=== PATIENT | female | born 1940 | race Caucasian/White ===

== ENCOUNTER → 2021-09-12 | Outpatient (CLI) | payer MEDICARE, BC ==
--- NOTE | 2021-09-12 12:20 | RAD ---
Ultrasound evaluation of the bladder 09/12/2021 INDICATION: Increased urinary frequency. Recent UTI. COMPARISON STUDY: Limited ultrasound evaluation of bladder was performed. Static images are submitted to PACS. Prevoid bladder volume is estimated 139 cc. Post void bladder volume is 62 cc. Bilateral ur eteral jets are visualized. Bladder wall appears minimally thickened. No other focal sonographic abno rmality is seen. IMPRESSION: 1. Prevoid bladder volume 1 39 cc. Post void bladder volume 62 cc 2. Probable mild bladder wall thickening Electronically signed by: Juan R Wu MD (09/12/2021 12:18 PM) [id number]
== END ==
LOC: US 10:57
PROVIDERS: ATTEND Family Medicine
DX: R35.0 Frequency of micturition (principal)
CPT/HCPCS: 76857

== ENCOUNTER 2021-11-26 00:22 | Inpatient (IN) | payer MEDICARE ==
[~2021-11-26] VITALS: Ht 167.6 cm; Wt 57.0 kg
[2021-11-26 00:58] LABS: CALCIUM 8.6 mg/dL (8.5-10.1); CREATININE 1.6 mg/dL (0.6-1.0); GFR 31.1; POTASSIUM 3.7 mmol/L (3.5-5.1)
[2021-11-26 01:04] LABS: ALBUMIN 3.7 g/dL (3.4-5.0); TOTAL BILIRUBIN 0.5 mg/dL (0.2-1.0); TOTAL PROTEIN 7.5 g/dL (6.4-8.2)
--- NOTE | 2021-11-26 01:04 | RAD ---
EXAM: AP View of the chest DATE: 11/26/2021 12:36 AM INDICATION: Shortness of breath COMPARISON: No Prior FINDINGS/ IMPRESSION: The heart is not enlarged. Bilateral perihilar and lung base airspace opacities likely consolidative process such as pneumonia. Small pleural effusions. No pneumothorax. Electronically signed by: Oj Del Valle MD (11/26/2021 1:02 AM) [facility]
--- NOTE | 2021-11-26 01:09 | PHYS DOC ---
Past History Past Surgical History: Other Alcohol Use: None General Adult EDM: Chief Complaint: SHORTNESS OF BREATH HPI: HPI: 81-year-old female presents via EMS with shortness of breath. Patient took metoprolol around 630. Around 7:30 PM she started to feel short of breath. She was not doing anything in particular when it started. It got worse through the evening, so she called EMS. When EMS arrived her oxygen saturations were in the 70s. The patient is not on oxygen at home. She has no official history of COPD but when she was a smoker for decades. She quit a few years ago. Patient states she was feeling fine prior to this episode. She had no complaints. Denies fever or chills. Review of Systems: Review of Systems: Constitutional: Denies fever or chills Eyes: Denies change in visual acuity HENT: Denies nasal congestion or sore throat Respiratory: Denies cough or shortness of breath Cardiovascular: Denies chest pain or edema GI: Denies abdominal pain, nausea, vomiting, bloody stools or diarrhea : Denies dysuria Musculoskeletal: Denies back pain or joint pain Integument: Denies rash Neurologic: Denies headache, focal weakness or sensory changes Endocrine: Denies polyuria or polydipsia Lymphatic: Denies swollen glands Psychiatric: Denies depression or anxiety Allergies: Allergies: Allergies Coded Allergies Type Severity Reaction Last Updated Verified No Known Drug Allergies 11/26/21 No Physical Exam: PE: Constitutional: Well developed, well nourished, no acute distress, non-toxic appearance. [] HENT: Normocephalic, atraumatic, bilateral external ears normal, oropharynx moist, no oral exudates, nose normal. [] Eyes: PERRLA, EOMI, conjunctiva normal, no discharge. [] Neck: Normal range of motion, no tenderness, supple, no stridor. [] Cardiovascular:Heart rate regular rhythm, no murmur [] Lungs & Thorax: Bilateral breath sounds clear to auscultation [] Abdomen: Bowel sounds normal, soft, no tenderness, no masses, no pulsatile masses. [] Skin: Warm, dry, no erythema, no rash. [] Back: No tenderness, no CVA tenderness. [] Extremities: No tenderness, no cyanosis, no clubbing, ROM intact, no edema. [] Neurologic: Alert and oriented X 3, normal motor function, normal sensory function, no focal deficits noted. [] Psychologic: Affect normal, judgement normal, mood normal. [] Current Patient Data: Labs: Laboratory Tests Test 11/26/21 00:25 Sodium Level 138 mmol/L (136-145) Potassium Level 3.7 mmol/L (3.5-5.1) Chloride Level 101 mmol/L (98-107) Carbon Dioxide Level 23 mmol/L (21-32) Anion Gap 14 (6-14) Blood Urea Nitrogen 25 mg/dL (7-20) H Creatinine 1.6 mg/dL (0.6-1.0) H Estimated GFR (Cockcroft-Gault) 31.1 BUN/Creatinine Ratio 16 (6-20) Glucose Level 396 mg/dL (70-99) H Calcium Level 8.6 mg/dL (8.5-10.1) Total Bilirubin 0.5 mg/dL (0.2-1.0) Aspartate Amino Transferase (AST) 44 U/L (15-37) H Alanine Aminotransferase (ALT) 24 U/L (14-59) Alkaline Phosphatase 182 U/L (46-116) H Troponin I High Sensitivity 27 ng/L (4-50) Total Protein 7.5 g/dL (6.4-8.2) Albumin 3.7 g/dL (3.4-5.0) Albumin/Globulin Ratio 1.0 (1.0-1.7) Vital Signs: Vital Signs Date Time Temp Pulse Resp B/P (MAP) Pulse Ox O2 Delivery O2 Flow Rate FiO2 11/26/21 00:38 100 24 126/76 (93) 98 BiPAP/CPAP EKG: EKG: [] Radiology/Procedures: Radiology/Procedures: [] Impressions: EXAM: CT chest with contrast - pulmonary embolus protocol CLINICAL HISTORY: Shortness of breath COMPARISON: None. TECHNIQUE: CT of the chest following the administration of intravenous contrast during the pulmonary arterial phase. Axial, coronal and sagittal reformatted images were generated including MIP images. ---PQRS compliance statement - One or more of the following individualized dose reduction techniques were utilized for this study: 1. Automated exposure control 2. Adjustment of the mA and/or kV according to patient size 3. Use of iterative reconstruction technique--- FINDINGS: CHEST: Diagnostic quality: Adequate. Pulmonary emboli: None seen Right heart strain: None Pulmonary arteries: Normal in caliber. Heart is mildly enlarged. No pericardial effusion. Small pleural effusions. No pneumothorax. Diffuse emphysematous changes are seen bilaterally. Bilateral solid and groundglass airspace opacities. Enlarged right hilar lymphadenopathy, rental representative lymph node measures 2.4 x 2 cm. Mediastinal lymphadenopathy. No axillary lymphadenopathy. Visualized Upper abdomen: High density material dependently within the gallbladder likely sludge. Bones: Multifocal degenerative changes of the spine greatest at T8-9 with severe disc height loss and endplate sclerosis. IMPRESSION: 1. No evidence for acute pulmonary embolus. 2. Bilateral solid and groundglass airspace opacities. Findings may represent COVID-19 pneumonia. Imaging follow-up to resolution is recommended as underlying mass may be excluded. 3. Mediastinal and right hilar lymphadenopathy, possibly reactive 4. Small pleural effusions. 5. Additionally the bilateral parenchymal airspace opacities and pleural effusions may be seen with pulmonary edema. Electronically signed by: Oj Jiménez MD (11/26/2021 2:23 AM) [facility] DICTATED AND SIGNED BY: OJ JIMÉNEZ MD DATE: 11/26/21218 CC: RHIANNON HALL DO; GUANAKITO LEGGETT ~MTH0 0 Heart Score: C/O Chest Pain: No Risk Factors: Risk Factors: DM, Current or recent (<one month) smoker, HTN, HLP, family history of CAD, obesity. Risk Scores: Score 0 - 3: 2.5% MACE over next 6 weeks - Discharge Home Score 4 - 6: 20.3% MACE over next 6 weeks - Admit for Clinical Observation Score 7 - 10: 72.7% MACE over next 6 weeks - Early Invasive Strategies Course & Med Decision Making: Course & Med Decision Making Pertinent Labs and Imaging studies reviewed. (See chart for details) When the patient arrived, she was placed on BiPAP. The patient's oxygen improved to 95% and she became much more alert and aware. Her initial venous blood gas pH was 7.066. See labs for more details. The patient's chest x-ray is significant for bilateral infiltrates. I will treat her for pneumonia and also order a CT angiogram of the chest. The patient has a lactic acid of 5.8 I have ordered 30 mL/kg of actual weight fluids. Her creatinine is 1.6. White count 14.4. Influenza and rapid Covid are negative. Repeat lactic acid 1.6. Patient's CTA was negative for pulmonary embolus but showed groundglass opacities as well as possible edema. I have given the patient 40 mg of Lasix IV. I spoke with the hospitalist, Dr. Cardoso and he has accepted the patient for admission. [] Dragon Disclaimer: Dragon Disclaimer: This electronic medical record was generated, in whole or in part, using a voice recognition dictation system. Departure Departure: Impression: Primary Impression: Bilateral pneumonia Additional Impressions: Pulmonary edema Respiratory failure Disposition: ADMITTED INPATIENT Admitting Physician: Low Cardoso Condition: STABLE Referrals: GUANAKITO LEGGETT (PCP) RHIANNON HALL DO Nov 26, 2021 01:09
[2021-11-26 01:13] LABS: BASO # 0.2 x10^3/uL (0.0-0.2); BASO % 1 % (0-3); EOS # 0.5 x10^3/uL (0.0-0.7); EOS % 3 % (0-3); HEMATOCRIT 43.8 % (36.0-47.0); HEMOGLOBIN 14.1 g/dL (12.0-15.5); LYMPH # 5.3 x10^3/uL (1.0-4.8); LYMPH % 36 % (24-48); MEAN CORPUSCULAR HEMOGLOBIN 32 pg (25-35); MEAN CORPUSCULAR HGB CONC 32 g/dL (31-37); MEAN CORPUSCULAR VOLUME 99 fL (79-100); MONO # 0.5 x10^3/uL (0.0-1.1); MONO % 4 % (0-9); NEUT % 56 % (31-73); PLATELET COUNT 325 x10^3/uL (140-400); RED BLOOD COUNT 4.44 x10^6/uL (3.50-5.40); RED CELL DISTRIBUTION WIDTH 13.3 % (11.5-14.5); WHITE BLOOD COUNT 14.4 x10^3/uL (4.0-11.0)
[2021-11-26 01:16] LABS: INFLUENZA A PATIENT NEGATIVE (NEGATIVE); INFLUENZA B PATIENT NEGATIVE (NEGATIVE)
[2021-11-26] MEDS ORDERED: IV NORMAL SALINE 50ML 50 ML ONE (01:24)
[2021-11-26] MEDS ORDERED: IV NORMAL SALINE 250ML 250 ML ONE (01:24)
[2021-11-26] MEDS ORDERED: cefTRIAXone SODIUM 1 GM VIAL ONE (01:24)
[2021-11-26] MEDS ORDERED: AZITHROMYCIN 500 MG VIAL. IV ONE (01:24)
[2021-11-26] MEDS ORDERED: AZITHROMYCIN 500 MG in IV NORMAL SALINE 250ML 250 ML IV ONE (01:30)
[2021-11-26] MEDS ORDERED: CONTRAST GIVEN. MC PRN (01:30)
[2021-11-26] MEDS ORDERED: IOHEXOL 350 MG/ML 100 ML VIAL. IV ONE (02:00)
[2021-11-26] MEDS ORDERED: FUROSEMIDE 40 MG/4 ML VIAL IVP ONE ×2 (02:15→03:00)
--- NOTE | 2021-11-26 02:26 | RAD ---
EXAM: CT chest with contrast - pulmonary embolus protocol CLINICAL HISTORY: Shortness of breath COMPARISON: None. TECHNIQUE: CT of the chest following the administration of intravenous contrast during the pulmonary arterial phase. Axial, coronal and sagittal reformatted images were generated including MIP images. ---PQRS compliance statement - One or more of the following individualized dose reduction techniques were utilized for this study: 1. Automated exposure control 2. Adjustment of the mA and/or kV according to patient size 3. Use of iterative reconstruction technique--- FINDINGS: CHEST: Diagnostic quality: Adequate. Pulmonary emboli: None seen Right heart strain: None Pulmonary arteries: Normal in caliber. Heart is mildly enlarged. No pericardial effusion. Small pleural effusions. No pneumothorax. Diffuse emphysematous changes are seen bilaterally. Bilateral solid and groundglass airspace opacitie s. Enlarged right hilar lymphadenopathy, kiosk sales representative lymph node measures 2.4 x 2 cm. Mediastinal lymp hadenopathy. No axillary lymphadenopathy. Visualized Upper abdomen: High density material dependently within the gallbladder likely sludge. Bones: Multifocal degenerative changes of the spine greatest at T8-9 with severe disc height loss and endplate sclerosis. IMPRESSION: 1. No evidence for acute pulmonary embolus. 2. Bilateral solid and groundglass airspace opacities. Findings may represent COVID-19 pneumonia. Im aging follow-up to resolution is recommended as underlying mass may be excluded. 3. Mediastinal and right hilar lymphadenopathy, possibly reactive 4. Small pleural effusions. 5. Additionally the bilateral parenchymal airspace opacities and pleural effusions may be seen with pulmonary edema. Electronically signed by: Oj Del Valle MD (11/26/2021 2:23 AM) [facility]BY
[2021-11-26] MEDS: IV NORMAL SALINE 1,000ML 1,000 ML IV SCH ×2 (02:27→03:00)
[2021-11-26 02:47] LABS: BILIRUBIN,URINE NEG (NEG); CLARITY,URINE HAZY; COLOR,URINE YELLOW; GLUCOSE,URINE 500 mg/dL (NEG); NITRITE,URINE NEG (NEG); UROBILINOGEN,URINE 0.2 mg/dL (0.2 mg/dL)
[2021-11-26 02:48] LABS: BACTERIA,URINE FEW /HPF (0-FEW); SQUAMOUS EPITHELIAL CELL,UR OCC /LPF
[2021-11-26] MEDS ORDERED: DEXAMETHASONE SOD PHOS 10 MG/ML VIAL. IV ONE (03:00)
[2021-11-26] MEDS ORDERED: ENOXAPARIN 40 MG/0.4 ML SYRINGE. SQ ONE (03:00)
[2021-11-26] MEDS ORDERED: POTASSIUM CHLORIDE 20 MEQ TABLET.ER. PO ONE (03:00)
[2021-11-26] MEDS ORDERED: ACETAMINOPHEN 325 MG TABLET PO PRN (06:00)
[2021-11-26] MEDS ORDERED: ONDANSETRON PF 4 MG/2 ML VIAL. IVP PRN (06:00)
--- NOTE | 2021-11-26 06:45 | EKG ---
[address] [address] Test Date: 2021-11-26 Test Time: 00:25:51 Pat Name: FINA GUILLAUME Department: Room: ED HOLD 9 Gender: F Contact Center Assistant: : 1940 Requested By: RHIANNON HALL Order Number: [id number] Reading MD: Dayo Grande Measurements Intervals [place] Rate: 121 P: NC: QRS: 90 QRSD: 140 T: -4 QT: 348 QTc: 497 Interpretive Statements SINUS TACHYCARDIA LEFT BUNDLE BRANCH BLOCK ABNORMAL ECG RI6.02 No previous ECG available for comparison Electronically Signed On 11-28-2021 15:10:21 LITIGATION COORDINATOR by Dayo Grande
--- NOTE | 2021-11-26 16:53 | EKG ---
[address] [address] Test Date: 2021-11-26 Test Time: 16:29:17 Pat Name: FINA GUILLAUME Department: Room: ED HOLD Gender: F Freelance Web Designer: BG : 1940 Requested By: RHIANNON HALL Order Number: [id number] Reading MD: Dayo Grande Measurements Intervals [place] Rate: 115 P: 245 MT: 136 QRS: 74 QRSD: 134 T: 58 QT: 364 QTc: 506 Interpretive Statements SINUS TACHYCARDIA NON SPECIFIC INTRAVENTRICULAR BLOCK Electronically Signed On 11-28-2021 15:05:14 TRAFFIC SAFETY ADMINISTRATOR by Dayo Grande
[2021-11-26] MEDS ORDERED: DEXTROSE 50% 25 GM / 50ML DISP.SYRIN. IV PRN (17:00)
[2021-11-26 17:20] LABS: ALBUMIN 3.2 g/dL (3.4-5.0); ALBUMIN/GLOBULIN RATIO 0.8 (1.0-1.7); CALCIUM 8.3 mg/dL (8.5-10.1); CREATININE 1.4 mg/dL (0.6-1.0); GFR 36.3; TOTAL BILIRUBIN 0.6 mg/dL (0.2-1.0); TOTAL PROTEIN 7.3 g/dL (6.4-8.2)
[2021-11-26] MEDS: INSULIN LISPRO 300 UNITS/3 ML VIAL. SQ SCH (17:36)
[2021-11-26] MEDS ORDERED: HEPARIN for IV BOLUS 10,000 UNIT/10 ML VIAL. IV ONE (17:45)
[2021-11-26] MEDS ORDERED: HEPARIN for IV BOLUS 10,000 UNIT/10 ML VIAL. IV PRN (17:45)
--- NOTE | 2021-11-26 18:00 | HP ---
DATE OF SERVICE: 11/26/2021 ADMIT DATE: 11/26/2021 HISTORY OF PRESENT ILLNESS: The patient is a 81-year-old female patient who presented to the Emergency Room of [facility] with a complaint of shortness of breath. She apparently took her metoprolol around 6:30 and around 7:30 p.m., she started to feel short of breath. She was not doing anything in particular when it started, it got worse through the evening, so she called EMS. When EMS arrived there, her oxygen saturation was only 70%. The patient is not on oxygen at home. She has no official history of COPD; however, she was a smoker for decades. She quit about 4 years ago. The patient stated that she was feeling fine prior to the episode. She has no complaint, in particular denied any chest pain, cough, phlegm or hemoptysis. Denied any chills, rigors or fever. In the Emergency Room, she was extensively evaluated and had had lab work as well as imaging studies. Her lab work showed mild leukocytosis with a white cell count 14,400. The venous blood gas showed a pH of 7.07, a pCO2 of 69, pO2 of 30 and bicarbonate 20, and oxygen saturation was 85%. Her chemistry showed that she has lactic acidosis with a serum lactic acid 5.8, hyperglycemia, mildly impaired kidney function and a BNP of 13,222. Her first set of troponin was 27 ng/L, the normal range 4-50. Her urinalysis showed the urine was yellow, hazy with a pH of 6, specific gravity of 1.020. There was large amount of protein, large amount of glucose. The urine was negative for ketones, small amount of blood, negative for nitrite and bilirubin, negative for leukocyte esterase, 3-5 rbc's, 1-4 wbc's and very few bacteria. Her influenza A and B were negative and coronavirus by rapid testing was negative. She did have a chest x-ray, which showed that the heart is not enlarged. She has bilateral perihilar and lung airspace opacities, likely consolidative process such as pneumonia, small pleural effusion, no pneumothorax. CT angio of the chest showed the patient has no evidence of acute pulmonary embolism, has bilateral solid and ground glass airspace opacities, finding may represent COVID-19 pneumonia. Imaging followup to resolution is recommended as underlying mass may be excluded. She does have mediastinal and right hilar lymphadenopathy, possibly reactive, small pleural effusion. Additionally, the bilateral parenchymal airspace opacities and pleural effusion, may represent pulmonary edema. She apparently was treated with IV antibiotic in the form of ceftriaxone and Zithromax together with dexamethasone and Lovenox and was treated with IV furosemide and she in fact received furosemide twice and has responded very well to diuresis. In fact, when I came to see her in the Emergency Room, she was on 15% nonrebreather mask. She was lying almost flat. She was able to finish her sentence and she was not really tachypneic, although she was still tachycardic and in fact, we managed to titrate her oxygen down to 4 liters, maintaining her oxygen saturation at 96-98%. PAST MEDICAL HISTORY: Significant for type 2 diabetes mellitus, hypertension, hyperlipidemia, generalized osteoarthritis. PAST SURGICAL HISTORY: She has uterine prolapse as well as tubal ligation. ALLERGIES: She has no known drug allergies. MEDICATIONS: She is currently on glipizide 5 mg twice a day. She is on metoprolol 25 mg twice a day and she was on Novolin insulin that was Novolin N that was discontinued by her primary care physician. She is not on any medication for hyperlipidemia. FAMILY HISTORY: She has 2 brothers younger. One of them has asthma and polio. The other one is healthy. Has no sisters. SOCIAL HISTORY: She is , has 2 daughters and 2 sons. She is an ex-smoker, smoked for decades; however, she quit smoking about 4 years ago. She does not drink alcohol or use recreational drugs. REVIEW OF SYSTEMS: As per history of present illness. PHYSICAL EXAMINATION: GENERAL: When I examined her this afternoon, she was resting slightly propped up in bed, in no apparent respiratory distress. She was somewhat pale, but not jaundiced or cyanosed, no lymphadenopathy, no thyromegaly, no jugular venous distention. No limb edema. VITAL SIGNS: Her heart rate was 105, blood pressure was 120/69, temperature was 98.4, respiratory rate was 16 and oxygen saturation was 96% on 4 liters of oxygen by nasal cannula. HEAD, EYES, EARS, NOSE, AND THROAT: Normocephalic, atraumatic. NECK: Supple. HEART: Showed normal first and second heart sounds. No gallop, rub or murmur. CHEST: Showed central trachea, equal bilateral chest expansion, air entry, vesicular breath sounds. I could not really appreciate any crepitation or rhonchi, however. ABDOMEN: Her abdomen was soft, nontender, no guarding or rigidity. No organomegaly. All hernial orifice intact. Bowel sounds normal. NEUROLOGIC: She was awake, alert, responding appropriately. All cranial nerves intact. She moves extremities without difficulty. She normally ambulates without assistance or assistive devices. She is fairly independent in taking care of herself, drives her car. Has never had any stress test before. Her first EKG showed that seems to be left bundle branch block. The second EKG showed that she has supraventricular rhythm and lower limb lead voltage, nonspecific intraventricular block, QRST contour abnormality consistent with anterior infarct, possibly recent, consider high lateral infarct. LABORATORY DATA: Her white cell count was 14,400, hemoglobin 14, hematocrit 44, MCV 99 and platelet count 325,000 with normal manual differential. Her chemistry showed a serum sodium 138, potassium 3.7, chloride 101, bicarbonate 23, anion gap of 14, BUN 25, creatinine 1.6. Estimated GFR was 31 mL per minute. Her glucose was 396. Lactic acid was 5.8, calcium was 8.6. Total bilirubin is normal. AST, ALT, alkaline phosphatase slightly elevated. Troponin I high sensitivity was 27. Total protein 7.5, albumin was 3.7. Her urinalysis essentially unremarkable and serology showed that she was influenza A and B negative and her SARS-CoV-2 antigens rapid testing was negative. ASSESSMENT AND PLAN: In summary, this is a 81-year-old female patient who was admitted with what seems to be acute on chronic diastolic congestive heart failure. She stated that she has been taking Aleve almost on a daily basis for aches and pains and this has been going on for weeks and months, but denied any change in her diet and in particular, she does not order any food from outside and she cooks her food herself. She is working to cut her sugar and salt in her diet, although she does not feel that she is doing that rightly so far. She denied any chest pain or diaphoresis and she has multiple risk factors for coronary artery disease including type 2 diabetes, hypertension, hyperlipidemia. She has been a smoker before. My plan is obviously to admit to the hospital. We will do 2 more sets of cardiac enzyme, check her fasting lipid profile. We will consult the customer service professional tomorrow. We will start her also on statin and she eventually probably will need to have an ischemic workup and an echocardiogram. PEPPER DR: Oliver TID: [id number]
[2021-11-26] MEDS: HEPARIN 25,000UTS/250ML PREMIX 250 ML IV PRN (18:59)
[2021-11-26] MEDS: ATORVASTATIN CALCIUM 20 MG TABLET PO SCH (21:14)
[2021-11-26 21:22] VITALS: BP 139/69
[2021-11-26 23:42] VITALS: BP 122/63
[2021-11-27 04:32] LABS: HEMATOCRIT 36.9 % (36.0-47.0); HEMOGLOBIN 12.1 g/dL (12.0-15.5); RED BLOOD COUNT 3.86 x10^6/uL (3.50-5.40); RED CELL DISTRIBUTION WIDTH 13.4 % (11.5-14.5); WHITE BLOOD COUNT 18.8 x10^3/uL (4.0-11.0)
[2021-11-27] MEDS: HEPARIN 25,000UTS/250ML PREMIX 250 ML IV PRN (04:39)
[2021-11-27] MEDS ORDERED: FUROSEMIDE 40 MG/4 ML VIAL IVP ONE ×2 (06:00→09:00)
[2021-11-27 06:08] VITALS: BP 120/70
[2021-11-27] MEDS: INSULIN LISPRO 300 UNITS/3 ML VIAL. SQ SCH ×3 (08:00→17:00)
--- NOTE | 2021-11-27 08:36 | PDOC2 ---
CARDIAC CONSULT DATE OF CONSULT DOS: DATE: 11/27/21 TIME: 08:32 REASON FOR CONSULT Reason for Consult Pulmonary edema REFERRING PHYSICIAN Referring Physician Dr. Cardoso SOURCE Source: Chart review, Patient HPI History of Present Illness This is a 81 yo yo female who presented secondary to shortness of breath. Patient reports developing shortness of breath Thursday evening after taking Leslie decorations down. Reports she laid down in bed and began feeling sig nificantly short of breath. [place] better when she sat up. She laid back down and began feeling short of breath again. EMS was called. Was noted to be hypoxic with oxygen saturation in the 70's upon their arrival. She denies any chest pain, palpitations, dizziness, diaphoresis, or nausea/vomiting. No recent illness or fevers. Was in usual state of health Thursday. EKG noted with LBBB. She follows with PCP through [facility]. Was noted with abnormal EKG recently and referred to Dr. Kang. She reports EKG in 2017 was similar to current EKG. She denies any prior cardiac workup. She was scheduled for outpatient echo in December at [facility]. PAST MEDICAL HISTORY Cardiovascular: CHF, HTN, hyperipidemia Endocrine: Diabetes PAST SURGICAL HISTORY Past Surgical History: Other (vaginal prolapse surgery) FAMILY HISTORY Family History: Hypertension SOCIAL HISTORY Smoke: Quit ALCOHOL: none Lives: Alone CURRENT MEDICATIONS Current Medications Current Medications Ceftriaxone Sodium 1 gm/ Sodium Chloride 50 ml @ 100 mls/hr 1X ONCE IV Last administered on 11/26/21at 01:29; Start 11/26/21 at 01:30; Stop 11/26/21 at 01:59; Status DC Azithromycin 500 mg/Sodium Chloride 250 ml @ 250 mls/hr 1X ONCE IV Last administered on 11/26/21at 01:31; Start 11/26/21 at 01:30; Stop 11/26/21 at 02:29; Status DC Iohexol (Omnipaque 350 Mg/ml) 100 ml 1X ONCE IV Last administered on 11/26/21at 01:42; Start 11/26/21 at 02:00; Stop 11/26/21 at 02:01; Status DC Info (Do NOT chart on this entry -- for MONITORING) 1 each PRN DAILY PRN MC SEE COMMENTS; Start 11/26/21 at 01:30; Stop 11/28/21 at 01:29 Sodium Chloride 250 ml @ As Directed STK-MED ONCE .ROUTE ; Start 11/26/21 at 01:24; Stop 11/26/21 at 01:24; Status DC Sodium Chloride 50 ml @ As Directed STK-MED ONCE .ROUTE ; Start 11/26/21 at 01:24; Stop 11/26/21 at 01:24; Status DC Azithromycin (Zithromax) 500 mg STK-MED ONCE IV ; Start 11/26/21 at 01:24; Stop 11/26/21 at 01:24; Status DC Ceftriaxone Sodium (Rocephin) 1 gm STK-MED ONCE .ROUTE ; Start 11/26/21 at 01:24; Stop 11/26/21 at 01:24; Status DC Sodium Chloride 1,000 ml @ 1,000 mls/hr Q1H IV Last administered on 11/26/21at 02:27; Start 11/26/21 at 02:00; Stop 11/26/21 at 03:57; Status DC Furosemide (Lasix) 40 mg 1X ONCE IVP ; Start 11/26/21 at 02:15; Stop 11/26/21 at 01:56; Status DC Dexamethasone Sodium Phosphate (Decadron) 10 mg 1X ONCE IV Last administered on 11/26/21at 04:57; Start 11/26/21 at 03:00; Stop 11/26/21 at 03:01; Status DC Enoxaparin Sodium (Lovenox 40mg Syringe) 40 mg 1X ONCE SQ Last administered on 11/26/21at 04:58; Start 11/26/21 at 03:00; Stop 11/26/21 at 03:01; Status DC Furosemide (Lasix) 40 mg 1X ONCE IVP Last administered on 11/26/21at 04:57; Start 11/26/21 at 03:00; Stop 11/26/21 at 03:01; Status DC Potassium Chloride (Klor-Con) 40 meq 1X ONCE PO Last administered on 11/26/21at 04:58; Start 11/26/21 at 03:00; Stop 11/26/21 at 03:01; Status DC Ondansetron HCl (Zofran) 4 mg PRN Q4HRS PRN IVP NAUSEA/VOMITING; Start 11/26/21 at 06:00; Stop 11/27/21 at 05:59; Status DC Acetaminophen (Tylenol) 650 mg PRN Q4HRS PRN PO FEVER > 100.3'F; Start 11/26/21 at 06:00; Stop 11/27/21 at 05:59; Status DC Insulin Human Lispro (HumaLOG) 0-7 UNITS TIDWMEALS SQ Last administered on 11/26/21at 17:36; Start 11/26/21 at 17:00 Dextrose (Dextrose 50%-Water Syringe) 12.5 gm PRN Q15MIN PRN IV SEE COMMENTS; Start 11/26/21 at 17:00 Atorvastatin Calcium (Lipitor) 40 mg QHS PO Last administered on 11/26/21at 21:14; Start 11/26/21 at 21:00 Heparin Sodium/ Dextrose 250 ml @ 7.8 mls/hr CONT PRN IV SEE I/O RECORD Last administered on 11/27/21at 04:39; Start 11/26/21 at 17:45 Heparin Sodium (Porcine) (Heparin Sodium) 3,900 unit 1X ONCE IV Last administered on 11/26/21at 18:58; Start 11/26/21 at 17:45; Stop 11/26/21 at 17:56; Status DC Heparin Sodium (Porcine) (Heparin Sodium) 1,650 unit PRN Q6HRS PRN IV FOR PTT LESS THAN 24 SECONDS; Start 11/26/21 at 17:45 Furosemide (Lasix) 40 mg 1X ONCE IVP ; Start 11/27/21 at 06:00; Stop 11/27/21 at 05:29; Status DC Furosemide (Lasix) 40 mg 1X ONCE IVP ; Start 11/27/21 at 09:00; Stop 11/27/21 at 09:01 ALLERGIES Allergies: Coded Allergies: No Known Drug Allergies (Unverified , 11/26/21) ROS Review of Systems 14 point ROS conducted with pertinent positives noted above in HPI PHYSICAL EXAM General: Alert, Oriented X3, Cooperative, No acute distress HEENT: Atraumatic Lungs: Other (bibasilar crackles ) Heart: Regular rate (SR/ST) Abdomen: Soft, No tenderness Extremities: No edema, Normal pulses Skin: No breakdown Neuro: Normal speech, Sensation intact Psych/Mental Status: Mental status NL, Mood NL MUSCULOSKELETAL: Osteoarthritic changes both hands VITALS Vital Signs Vital Signs Date Time Temp Pulse Resp B/P (MAP) Pulse Ox O2 Delivery O2 Flow Rate FiO2 11/27/21 06:08 97.1 100 20 120/70 (87) 98 Room Air 11/26/21 19:30 2.0 LABS LABS Laboratory Tests Test 11/26/21 00:25 11/26/21 01:08 11/26/21 01:55 11/26/21 02:19 White Blood Count 14.4 x10^3/uL (4.0-11.0) Red Blood Count 4.44 x10^6/uL (3.50-5.40) Hemoglobin 14.1 g/dL (12.0-15.5) Hematocrit 43.8 % (36.0-47.0) Mean Corpuscular Volume 99 fL (79-100) Mean Corpuscular Hemoglobin 32 pg (25-35) Mean Corpuscular Hemoglobin Concent 32 g/dL (31-37) Red Cell Distribution Width 13.3 % (11.5-14.5) Platelet Count 325 x10^3/uL (140-400) Neutrophils (%) (Auto) 56 % (31-73) Lymphocytes (%) (Auto) 36 % (24-48) Monocytes (%) (Auto) 4 % (0-9) Eosinophils (%) (Auto) 3 % (0-3) Basophils (%) (Auto) 1 % (0-3) Neutrophils # (Auto) 8.0 x10^3uL (1.8-7.7) Lymphocytes # (Auto) 5.3 x10^3/uL (1.0-4.8) Monocytes # (Auto) 0.5 x10^3/uL (0.0-1.1) Eosinophils # (Auto) 0.5 x10^3/uL (0.0-0.7) Basophils # (Auto) 0.2 x10^3/uL (0.0-0.2) Sodium Level 138 mmol/L (136-145) Potassium Level 3.7 mmol/L (3.5-5.1) Chloride Level 101 mmol/L (98-107) Carbon Dioxide Level 23 mmol/L (21-32) Anion Gap 14 (6-14) Blood Urea Nitrogen 25 mg/dL (7-20) Creatinine 1.6 mg/dL (0.6-1.0) Estimated GFR (Cockcroft-Gault) 31.1 BUN/Creatinine Ratio 16 (6-20) Glucose Level 396 mg/dL (70-99) Lactic Acid Level 5.8 mmol/L (0.4-2.0) Calcium Level 8.6 mg/dL (8.5-10.1) Total Bilirubin 0.5 mg/dL (0.2-1.0) Aspartate Amino Transf (AST/SGOT) 44 U/L (15-37) Alanine Aminotransferase (ALT/SGPT) 24 U/L (14-59) Alkaline Phosphatase 182 U/L (46-116) Troponin I High Sensitivity 27 ng/L (4-50) DQ-Cgq-W-Type Natriuretic Peptide 36754 pg/mL (0-449) Total Protein 7.5 g/dL (6.4-8.2) Albumin 3.7 g/dL (3.4-5.0) Albumin/Globulin Ratio 1.0 (1.0-1.7) Coronavirus (COVID-19)(PCR) Not detected (NOT DETECTD) Influenza Type A (Rapid) Negative (NEGATIVE) Influenza Type B (Rapid) Negative (NEGATIVE) SARS-CoV-2 Antigen (Rapid) Negative (NEGATIVE) Bedside Venous pH 7.07 (7.32-7.42) 7.30 (7.32-7.42) Bedside Venous pCO2 69 mmHg (41-51) 43 mmHg (41-51) Bedside Venous pO2 30 mmHg (20-40) 23 mmHg (20-40) Venous Blood HCO3 20 mmol/L (24-28) 21 mmol/L (24-28) POC Venous O2 Saturation (Allie) 35 % 34 % Bedside FiO2 85 50 Urine Collection Type Unknown Urine Color Yellow Urine Clarity Hazy Urine pH 6.0 Urine Specific [place] 1.020 Urine Protein 100 mg/dl (NEG-TRACE) Urine Glucose (UA) 500 mg/dL (NEG) Urine Ketones (Stick) Neg mg/dL (NEG) Urine Blood Small (NEG) Urine Nitrite Neg (NEG) Urine Bilirubin Neg (NEG) Urine Urobilinogen Dipstick 0.2 mg/dL (0.2 mg/dL) Urine Leukocyte Esterase Neg (NEG) Urine RBC 3-5 /HPF (0-2) Urine WBC 1-4 /HPF (0-4) Urine Squamous Epithelial Cells Occ /LPF Urine Bacteria Few /HPF (0-FEW) Test 11/26/21 04:51 11/26/21 16:43 11/26/21 17:26 11/26/21 18:44 Lactic Acid Level 1.6 mmol/L (0.4-2.0) Sodium Level 137 mmol/L (136-145) Potassium Level 5.0 mmol/L (3.5-5.1) Chloride Level 103 mmol/L (98-107) Carbon Dioxide Level 24 mmol/L (21-32) Anion Gap 10 (6-14) Blood Urea Nitrogen 30 mg/dL (7-20) Creatinine 1.4 mg/dL (0.6-1.0) Estimated GFR (Cockcroft-Gault) 36.3 BUN/Creatinine Ratio 21 (6-20) Glucose Level 266 mg/dL (70-99) Calcium Level 8.3 mg/dL (8.5-10.1) Total Bilirubin 0.6 mg/dL (0.2-1.0) Aspartate Amino Transf (AST/SGOT) 35 U/L (15-37) Alanine Aminotransferase (ALT/SGPT) 22 U/L (14-59) Alkaline Phosphatase 138 U/L (46-116) Troponin I High Sensitivity 236 ng/L (4-50) Total Protein 7.3 g/dL (6.4-8.2) Albumin 3.2 g/dL (3.4-5.0) Albumin/Globulin Ratio 0.8 (1.0-1.7) Glucose (Fingerstick) 258 mg/dL (70-99) 330 mg/dL (70-99) Test 11/26/21 19:30 11/26/21 21:05 11/26/21 21:18 11/27/21 03:56 Prothrombin Time 13.0 SEC (9.4-11.4) Prothromb Time International Ratio 1.3 (0.9-1.1) Troponin I High Sensitivity 169 ng/L (4-50) Activated Partial Thromboplast Time 66 SEC (23-33) 33 SEC (23-33) Glucose (Fingerstick) 231 mg/dL (70-99) White Blood Count 18.8 x10^3/uL (4.0-11.0) Red Blood Count 3.86 x10^6/uL (3.50-5.40) Hemoglobin 12.1 g/dL (12.0-15.5) Hematocrit 36.9 % (36.0-47.0) Mean Corpuscular Volume 96 fL (79-100) Mean Corpuscular Hemoglobin 31 pg (25-35) Mean Corpuscular Hemoglobin Concent 33 g/dL (31-37) Red Cell Distribution Width 13.4 % (11.5-14.5) Platelet Count 245 x10^3/uL (140-400) RL-Kbb-C-Type Natriuretic Peptide 80565 pg/mL (0-449) Test 11/27/21 07:27 Glucose (Fingerstick) 138 mg/dL (70-99) ASSESSMENT/PLAN Assessment/Plan 1. Acute respiratory failure with CHF 2. Acute on chronic CHF with possible diastolic dysfunction 3. Mild troponin elevation; high sensitivity peak 236. Most probable type II, demand ischemia 4. Hypertension; controlled 5. Hyperlipidemia 6. Diabetes, II 7. Leukocytosis, lactic acidosis 8. LBBB; present on EKG in 2017 conducted at [facility] reportedly 9. H/o tobaccoism; in remission Recommendations Diuresis with monitoring of renal function Okay to discontinue heparin gtt ASA therapy Lipids 2Gm Na diet. Daily weight monitoring Outpatient echo as arranged Will need outpatient ischemic evaluation; patient has been seen by Dr. Kang through [facility], but is considering switching to cardiac care to [facility] due to convenience Supportive care ART BECK APRN Nov 27, 2021 08:36
[2021-11-27 11:22] LABS: CREATININE 1.3 mg/dL (0.6-1.0); GFR 39.5
[2021-11-27 11:43] VITALS: BP 148/76
--- NOTE | 2021-11-27 15:21 | PN ---
DATE: 11/27/2021 ATTENDING PHYSICIAN: Dr. Cardoso. SUBJECTIVE: She is breathing better. She is urinating well with a dose of Lasix. OBJECTIVE FINDINGS: VITAL SIGNS: Blood pressure this morning is 120/70. She is afebrile, pulse 98 and regular, oxygen saturation 98% on room air. HEENT: Head is without trauma. Pupils are reactive. Sclerae nonicteric. Oropharynx clear. NECK: Supple, no bruits. LUNGS: Good breath sounds. Minimal crackles at bases. CARDIOVASCULAR: Showed regular heart tones. ABDOMEN: Soft. EXTREMITIES: Without edema. NEUROLOGIC FINDINGS: Focally intact. No deficits. LABORATORY DATA: BMP on admission was 21,697. Chest x-ray as noted. ASSESSMENT: 1. A 81-year-old female with acute congestive heart failure, improved with diuresis. 2. Hypoxemia, improved. 3. History of asthma. 4. Type 2 diabetes. 5. Essential hypertension. PLAN: 1. Continue diuresis with Lasix twice a day. 2. 1200 mL fluid restricted. 3. Daily weights. 4. Serial chemistry. 5. Recs per Cardiology. They have tentative plans for ischemic workup as an outpatient. 6. Tentative discharge plans for tomorrow. 7. I suspect the triggering factor is the daily use of Aleve, which causes fluid retention. GIAN/JORGE/KAILA DR: GIAN/anupam TID: [id number] CC: GUANAKITO LEGGETT
[2021-11-27 15:52] VITALS: BP 129/79
[2021-11-27 19:00] VITALS: BP 146/72
[2021-11-27] MEDS: POTASSIUM CHLORIDE 20 MEQ TABLET.ER. PO SCH (20:12)
[2021-11-27] MEDS: FUROSEMIDE 40 MG/4 ML VIAL IVP SCH (20:12)
[2021-11-27] MEDS: ATORVASTATIN CALCIUM 20 MG TABLET PO SCH (20:14)
[2021-11-27] MEDS ORDERED: METOPROLOL TART IMMED RELEASE 25 MG TABLET. PO SCH (21:00)
[2021-11-27 23:00] VITALS: BP 112/58
[2021-11-28 05:58] VITALS: BP 126/75
[2021-11-28] MEDS: INSULIN LISPRO 300 UNITS/3 ML VIAL. SQ SCH (08:00)
[2021-11-28] MEDS ORDERED: ASPIRIN ENTERIC COATED 81 MG TABLET.DR. PO SCH (08:00)
--- NOTE | 2021-11-28 08:13 | PDOC ---
CARDIO Progress Notes Date & Time Date of Service DATE: 11/28/21 TIME: 08:10 Time of Evaluation 08:10 Subjective Notes Feels much better, able to lay flat without shortness of breath. Vitals Vitals Vital Signs Date Time Temp Pulse Resp B/P (MAP) Pulse Ox O2 Delivery O2 Flow Rate FiO2 11/28/21 05:58 98.0 84 16 126/75 (92) 94 Room Air 11/26/21 19:30 2.0 Weight Weight [ ] Input and Output I.O. Intake and Output 11/28/21 06:59 Intake Total 960 ml Balance 960 ml Intake Oral 960 ml Laboratory Labs Laboratory Tests Test 11/26/21 16:43 11/26/21 17:26 11/26/21 18:44 11/26/21 19:30 Sodium Level 137 mmol/L (136-145) Potassium Level 5.0 mmol/L (3.5-5.1) Chloride Level 103 mmol/L (98-107) Carbon Dioxide Level 24 mmol/L (21-32) Anion Gap 10 (6-14) Blood Urea Nitrogen 30 mg/dL (7-20) Creatinine 1.4 mg/dL (0.6-1.0) Estimated GFR (Cockcroft-Gault) 36.3 BUN/Creatinine Ratio 21 (6-20) Glucose Level 266 mg/dL (70-99) Calcium Level 8.3 mg/dL (8.5-10.1) Total Bilirubin 0.6 mg/dL (0.2-1.0) Aspartate Amino Transf (AST/SGOT) 35 U/L (15-37) Alanine Aminotransferase (ALT/SGPT) 22 U/L (14-59) Alkaline Phosphatase 138 U/L (46-116) Troponin I High Sensitivity 236 ng/L (4-50) 169 ng/L (4-50) Total Protein 7.3 g/dL (6.4-8.2) Albumin 3.2 g/dL (3.4-5.0) Albumin/Globulin Ratio 0.8 (1.0-1.7) Glucose (Fingerstick) 258 mg/dL (70-99) 330 mg/dL (70-99) Prothrombin Time 13.0 SEC (9.4-11.4) Prothromb Time International Ratio 1.3 (0.9-1.1) Test 11/26/21 21:05 11/26/21 21:18 11/27/21 03:56 11/27/21 07:27 Activated Partial Thromboplast Time 66 SEC (23-33) 33 SEC (23-33) Glucose (Fingerstick) 231 mg/dL (70-99) 138 mg/dL (70-99) White Blood Count 18.8 x10^3/uL (4.0-11.0) Red Blood Count 3.86 x10^6/uL (3.50-5.40) Hemoglobin 12.1 g/dL (12.0-15.5) Hematocrit 36.9 % (36.0-47.0) Mean Corpuscular Volume 96 fL (79-100) Mean Corpuscular Hemoglobin 31 pg (25-35) Mean Corpuscular Hemoglobin Concent 33 g/dL (31-37) Red Cell Distribution Width 13.4 % (11.5-14.5) Platelet Count 245 x10^3/uL (140-400) LK-Mwz-I-Type Natriuretic Peptide 29854 pg/mL (0-449) Triglycerides Level 109 mg/dL (0-150) Cholesterol Level 137 mg/dL (0-200) LDL Cholesterol, Calculated 65 mg/dL (0-100) VLDL Cholesterol, Calculated 21 mg/dL (0-40) Non-HDL Cholesterol Calculated 86 mg/dL (0-129) HDL Cholesterol 51 mg/dL (40-60) Cholesterol/HDL Ratio 2.0 Procalcitonin 2.84 ng/mL (0.00-0.10) Test 11/27/21 10:50 11/27/21 11:57 11/27/21 16:57 Sodium Level 138 mmol/L (136-145) Potassium Level 4.0 mmol/L (3.5-5.1) Chloride Level 102 mmol/L (98-107) Carbon Dioxide Level 24 mmol/L (21-32) Anion Gap 12 (6-14) Blood Urea Nitrogen 30 mg/dL (7-20) Creatinine 1.3 mg/dL (0.6-1.0) Estimated GFR (Cockcroft-Gault) 39.5 Glucose Level 174 mg/dL (70-99) Calcium Level 9.0 mg/dL (8.5-10.1) Glucose (Fingerstick) 161 mg/dL (70-99) 110 mg/dL (70-99) Microbiology Micro Microbiology 11/26/21 Blood Culture - Preliminary, Resulted NO GROWTH AFTER 2 DAYS... Physical Exams HEENT: Neck Supple W Full Motion Chest: Symmetric Lungs: Clear to Auscultation Heart: RRR Abdomen: Soft N/T Extremities: No Edema Neurology: alert, oriented, follow commands Assessment Assessment 1. Acute respiratory failure with CHF. improved s/p diuresis. clinically compensated. 2. Acute on chronic systolic CHF, cardiomyopathy; recent MPI with 39% per PCP, Dr. Tadeo. Report of this not available for viewing. 3. Mild troponin elevation; high sensitivity peak 236. Most probable type II, demand ischemia. CP free 4. Hypertension; controlled 5. Hyperlipidemia 6. Diabetes, II 7. Leukocytosis, lactic acidosis 8. LBBB; present on EKG in [address] [facility] reportedly 9. H/o tobaccoism; in remission Recommendations Convert metoprolol to long-acting for HF optimization Add spironolactone Repeat labs Add low-dose ACEi if renal function stable Continue ASA, statin therapy 2Gm Na diet. Daily weight monitoring Outpatient echo as arranged Follow up in out office as scheduled Outpatient ischemic evaluation to be arranged after followup ART BECK APRN Nov 28, 2021 08:13
[2021-11-28] MEDS: FUROSEMIDE 40 MG/4 ML VIAL IVP SCH (08:45)
[2021-11-28] MEDS: POTASSIUM CHLORIDE 20 MEQ TABLET.ER. PO SCH (08:46)
[2021-11-28 08:48] VITALS: BP 126/75
[2021-11-28] MEDS ORDERED: ASPI-889 PO (08:50)
[2021-11-28] MEDS ORDERED: SPIR25TA PO (08:50)
[2021-11-28] MEDS ORDERED: ATOR20TA58 PO (08:50)
[2021-11-28] MEDS ORDERED: METO50TA29 PO (08:50)
[2021-11-28] MEDS ORDERED: SPIRONOLACTONE 25 MG TABLET PO SCH (09:00)
[2021-11-28] MEDS ORDERED: METOPROLOL SUCC 24HR ER 50 MG TAB.ER.24H. PO SCH (09:00)
[2021-11-28 09:20] LABS: CALCIUM 9.1 mg/dL (8.5-10.1); CREATININE 1.3 mg/dL (0.6-1.0); GFR 39.5; POTASSIUM 4.1 mmol/L (3.5-5.1)
--- NOTE | 2021-11-28 09:28 | DS ---
DATE OF DISCHARGE: 11/28/2021 ATTENDING PHYSICIAN: Dr. Servin. FINAL DISCHARGE DIAGNOSES: 1. Acute respiratory failure due to congestive heart failure, clinically compensated. 2. Acute on chronic systolic congestive heart failure. 3. History of cardiomyopathy with a previous ejection fraction estimated at 39% per Dr. Leggett. 4. Essential hypertension. 5. Type 2 diabetes. 6. Mild elevation of troponin due to a stress demand ischemia. No other symptoms. 7. Leukocytosis, resolved. 8. Left bundle branch block by history. HISTORY AND PHYSICAL: This is a pleasant 81-year-old female with a known diminished ejection fraction. She has seen a american board certified orthotist at [facility]. I believe the triggering factor that put her in the heart failure was the concomitant use of [id number] Aleve for degenerative arthritis. She presented with bilateral pleural effusions and significant respiratory distress. PHYSICAL EXAMINATION: Please see the dictated note. PERTINENT LABORATORY AND X-RAY STUDIES: Admission hemoglobin was 14.1 g/dL with a white count of 14,000. Repeat white count was still elevated due to margination of white cells. Blood cultures are negative at 48 hours. Potassium was 4.0 mEq per liter. Creatinine 1.3 mg percent. Nonfasting blood sugar in the low 100s. Chest x-ray and CT of the chest showed evidence of bilateral pleural effusions, some mediastinal and right hilar adenopathy. This is also consistent with pulmonary edema. COURSE IN HOSPITAL: The patient was admitted. Blood cultures were negative. Empiric antibiotics were started and discontinued. She responded well to intravenous Lasix with excellent diuresis. Blood sugars were under well control and she had a net loss of weight due to daily weights and fluid restriction. Cardiology consultation was obtained. Their recommendation is on the chart. For now, with her decreased ejection fraction, she has elected to follow up with the american board certified orthotist through our hospital. Arrangements then were made for outpatient echocardiogram to reassess ejection fraction and wall motion abnormalities along with schedule her for formal Cardiology consultation and plan for cardiac catheterization. She was discharged home on the third hospital day with oral metoprolol 50 mg daily, Aldactone, Lasix, statin as well as her home meds, her diabetic regimen, insulin, dosages unchanged. Once again, I recommended she get a hold if accurate bathroom scale and weigh herself daily and record her weights to bring in for Dr. Yoakam The patient was then discharged from our hospital in stable condition. Please note that we also added aspirin and Aldactone to her regimen. The decision for an LUIS inhibitor is pending today's chemistry panel. The patient was then discharged from our hospital in stable condition with explicit instruction and followup care. Total discharge time spent [address]: Princess TID: [id number] CC: GUANAKITO LEGGETT
[2021-11-28] MEDS ORDERED: LISI5TAB15 PO (10:21)
[2021-11-29] MEDS ORDERED: LISINOPRIL 5 MG TABLET. PO SCH (09:00)
== END 2021-11-28 10:40 | disposition home or self-care (01) | DRG 291 ==
LOC: ER 00:22 → ER HOLD 05:57 → LND 12:00 → ER HOLD 12:26 → 1 SOUTH 19:52
PROVIDERS: ADMIT Internal Medicine; ATTEND Internal Medicine
PROC: 5A09357 Assistance with Respiratory Ventilation, Less than 24 Consecutive Hours, Continuous Positive Airway Pressure (ICD-10-PCS; principal; 2021-11-26)
DX: I11.0 Hypertensive heart disease with heart failure (principal); I50.43 Acute on chronic combined systolic (congestive) and diastolic (congestive) heart failure; J96.01 Acute respiratory failure with hypoxia; R65.11 Systemic inflammatory response syndrome (SIRS) of non-infectious origin with acute organ dysfunction; J18.9 Pneumonia, unspecified organism; I24.8 Other forms of acute ischemic heart disease; Z20.822 Contact with and (suspected) exposure to COVID-19; E11.65 Type 2 diabetes mellitus with hyperglycemia; E78.5 Hyperlipidemia, unspecified; I42.9 Cardiomyopathy, unspecified; I44.7 Left bundle-branch block, unspecified; J45.909 Unspecified asthma, uncomplicated; M15.9 Polyosteoarthritis, unspecified; Z87.891 Personal history of nicotine dependence; Z82.49 Family history of ischemic heart disease and other diseases of the circulatory system; Z82.5 Family history of asthma and other chronic lower respiratory diseases; Z79.84 Long term (current) use of oral hypoglycemic drugs
CPT/HCPCS: 36415; 71045; 71275; 80048; 80053; 80061; 81001; 82803; 82947; 83605; 83735; 83880; 84145; 84484; 85025; 85027; 85610; 85730; 87040; 87426; 87804; 93005; 94660; 96365; 96366; 96367; 96372; 96375; 96376; J0456; J0696; J1100; J1644; J1650; J1815; J1940; J7050; Q9967; U0003; 99285-25; J7030